=== PATIENT | male | born 1990 | race Two or more races ===

== ENCOUNTER 2022-05-15 10:12 | Emergency (ER) | payer OTHER ==
[~2022-05-15] VITALS: Ht 175.3 cm; Wt 88.5 kg
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
--- NOTE | 2022-05-15 10:28 | NUR ---
DR. CORONEL AT BEDSIDE FOR EVAL
[2022-05-15] MEDS ORDERED: NAPR-1192 PO (11:58)
--- NOTE | 2022-05-15 12:06 | NUR ---
Patient discharged to home in stable condition. Written and verbal after care instructions given. Patient verbalizes understanding of instruction.
[2022-05-15 12:07] VITALS: BP 134/76
== END 2022-05-15 12:08 | disposition home or self-care (01) ==
LOC: ER 10:19
DX: S61.411A Laceration without foreign body of right hand, initial encounter (principal); Z98.890 Other specified postprocedural states; Z79.899 Other long term (current) drug therapy; W26.8XXA Contact with other sharp object(s), not elsewhere classified, initial encounter; Y93.G1 Activity, food preparation and clean up; Y92.89 Other specified places as the place of occurrence of the external cause; Y99.8 Other external cause status
CPT/HCPCS: 99283; 12001; 73130; A6403